=== PATIENT | male | born 1965 | race African-American/Black ===

== ENCOUNTER → 2017-03-17 | Outpatient (CLI) | payer OTHER ==
[~2017-03-17] MED LIST: ASPI-892 PO; LISI1TAB78 PO
== END ==
LOC: PREOP 05:42
PROVIDERS: ATTEND Surgery
DX: Z01.818 Encounter for other preprocedural examination (principal); K62.5 Hemorrhage of anus and rectum

== ENCOUNTER 2017-03-24 13:10 | Day surgery (SDC) | payer OTHER ==
[~2017-03-24] VITALS: Ht 170.2 cm; Wt 81.2 kg
--- OUTSIDE RECORDS SUMMARY | 2017-03-24 13:14 | XMS REPORT | Continuity of Care Document ---
Author Author [facility] Address Unknown Phone Unavailable Allergies Active Description Code Type Severity Reaction Onset Reported/Identified Relationship to Patient Clinical Status Yes No Known Drug Allergies [id number] Drug Allergy Unknown N/ A 07/18/2014 Medications Problems Date Dx Coded Attending Type Code Diagnosis Diagnosed By 09/15/2012 927.20 CRUSHING INJURY OF HAND(S) 09/15/2012 927.20 CRUSHING INJURY OF HAND(S) 09/15/2012 DARNELL MCINTYRE APRN 927.20 CRUSHING INJURY OF HAND(S) 09/15/2012 DARNELL MCINTYRE APRN 927.20 CRUSHING INJURY OF HAND(S) 09/15/2012 DARNELL MCINTYRE APRN 927.20 CRUSHING INJURY OF HAND(S) 09/15/2012 SASHA RAND MD 927.20 CRUSHING INJURY OF HAND(S) 01/12/2013 401.1 BENIGN ESSENTIAL HYPERTENSION 01/12/2013 DARNELL MCINTYRE APRN R 401.1 BENIGN ESSENTIAL HYPERTENSION 01/12/2013 DARNELL MCINTYRE APRN R 401.1 BENIGN ESSENTIAL HYPERTENSION 01/12/2013 DARNELL MCINTYRE APRN R 401.1 BENIGN ESSENTIAL HYPERTENSION 01/12/2013 SASHA RAND MD 401.1 BENIGN ESSENTIAL HYPERTENSION 08/24/2013 DARNELL MCINTYRE APRN R V70.0 ROUTINE GENERAL MEDICAL EXAMINATION AT A HEALTH CARE FACILITY 08/24/2013 DARNELL MCINTYRE APRN V70.0 ROUTINE GENERAL MEDICAL EXAMINATION AT A HEALTH CARE FACILITY 08/24/2013 DARNELL MCINTYRE APRN V70.0 ROUTINE GENERAL MEDICAL EXAMINATION AT A HEALTH CARE FACILITY 08/24/2013 SASHA RAND MD V70.0 ROUTINE GENERAL MEDICAL EXAMINATION AT A HEALTH CARE FACILITY 04/11/2014 DARNELL MCINTYRE APRN 786.50 CHEST PAIN 04/11/2014 DARNELL MCINTYRE APRN 786.50 CHEST PAIN 04/11/2014 SASHA RAND MD 786.50 CHEST PAIN 07/12/2014 KEYONA DUKE, SASHA 424.0 MITRAL VALVE DISORDERS 07/12/2014 KEYONA DUKE, SASHA 785.1 PALPITATIONS 07/14/2014 Ot 424.0 07/14/2014 Ot 785.1 07/14/2014 Ot 786.50 07/17/2014 Ot 424.0 07/17/2014 Ot 785.1 07/17/2014 Ot 786.50 07/17/2014 Ot 424.0 07/17/2014 Ot 785.1 07/17/2014 Ot 786.50 07/17/2014 Ot 424.0 07/17/2014 Ot 785.1 07/17/2014 Ot 786.50 07/18/2014 Ot 424.0 07/18/2014 Ot 785.1 07/18/2014 Ot 786.50 07/18/2014 Ot 305.1 07/18/2014 Ot 401.9 07/18/2014 Ot 785.1 07/18/2014 Ot 786.09 07/18/2014 Ot 786.59 07/18/2014 Ot V58.69 07/18/2014 Ot V58.49 07/18/2014 Ot V58.49 07/19/2014 Ot 424.0 07/19/2014 Ot 785.1 07/19/2014 Ot 786.50 07/19/2014 Ot 424.0 07/19/2014 Ot 785.1 07/19/2014 Ot 786.50 07/19/2014 Ot 424.0 07/19/2014 Ot 785.1 07/19/2014 Ot 786.50 07/19/2014 Ot 424.0 07/19/2014 Ot 785.1 07/19/2014 Ot 786.50 07/19/2014 Ot 424.0 07/19/2014 Ot 785.1 07/19/2014 Ot 786.50 07/19/2014 Ot 424.0 07/19/2014 Ot 785.1 07/19/2014 Ot 786.50 07/20/2014 Ot 401.9 07/20/2014 Ot 998.11 07/26/2014 KEYONA DUKE, SASHA 729.5 PAIN IN LIMB 08/15/2014 Ot 424.0 08/15/2014 Ot 785.1 08/15/2014 Ot 786.50 08/15/2014 KEYONA DUKE FACC, SASHA FACP CCDS Ot 424.0 08/15/2014 KEYONA DUKE FACC, ALI FACP CCDS Ot 785.1 08/15/2014 KEYONA DUKE FACC, ALI FACP CCDS Ot 786.50 08/15/2014 Ot 424.0 08/15/2014 Ot 785.1 08/15/2014 Ot 786.50 08/15/2014 Ot 789.09 08/15/2014 Ot V45.89 08/15/2014 KEYONA DUKE FACC, ALI FACP CCDS Ot 424.0 08/15/2014 KEYONA DUKE FACC, ALI FACP CCDS Ot 785.1 08/15/2014 KEYONA DUKE FACC, ALI FACP CCDS Ot 786.50 08/15/2014 KEYONA DUKE FACC, ALI FACP CCDS Ot 424.0 08/15/2014 KEYONA DUKE FACC, ALI FACP CCDS Ot 785.1 08/15/2014 KEYONA DUKE FACC, ALI FACP CCDS Ot 786.50 08/15/2014 Ot 424.0 08/15/2014 Ot 785.1 08/15/2014 Ot 786.50 08/22/2014 Ot 424.0 08/22/2014 Ot 785.1 08/22/2014 Ot 786.50 08/22/2014 Ot 789.09 08/22/2014 Ot V45.89 10/05/2014 KEYONA DUKE FACC, ALI FACP CCDS Ot 305.1 10/05/2014 KEYONA HERNANDEZC, ALI FACP CCDS Ot 715.35 10/05/2014 KEYONA HERNANDEZC, ALI FACP CCDS Ot 789.09 10/18/2014 KEYONA DUKE FACC, ALI FACP CCDS Ot 305.1 10/18/2014 KEYONA DUKE FACC, ALI FACP CCDS Ot 715.35 10/18/2014 KEYONA DUKE FACC, ALI FACP CCDS Ot 789.09 10/19/2014 KEYONA DUKE FACC, ALI FACP CCDS Ot 424.0 10/19/2014 KEYONA DUKE FACC, ALI FACP CCDS Ot 785.1 10/19/2014 KEYONA DUKE FACC, ALI FACP CCDS Ot 786.50 Procedures Code Description [place] [address] XRAY HAND LEFT 2 VIEWS 09/16/2012 41310 XRAY CHEST 2 VIEW 04/11/2014 48855 EKG, TRACING 89334 ROUTINE VENIPUNCTURE 05/22/2014 CARDIOLOG SASHA RAND 05/22/2014 36277 CBC 05/22/2014 9315907 GFR CALC (RESULT ONLY) 05/22/2014 53020 CMP 05/22/2014 95173 LIPID PANEL 05/22 49813 MAGNESIUM 2013 07937 TSH 05/22/2014 56514 ECHO 2D 2014 17265 US SOFT TISSUE (SPECIFY LOCATION) 07/26/2014 76651 EVENT MONITOR 08/2014 73017 LEFT HEART CATH 07/26/2014 53062 KING 07/26/2014 42773 OXIMETRY 2014 Results Encounters ACCT No. Visit Date/Time Discharge Status Pt. Type Provider Facility Loc./Unit Complaint [id number] 07/26/2014 09:50:00 07/26/2014 23: 59:59 CLS Outpatient SASHA RAND MD [id number] 05/22/2014 10:34:00 05/22/2014 23: 59:59 CLS Outpatient DARNELL MCINTYRE APRN [id number] 04/11/2014 16:24:00 04/11/2014 23: 59:59 CLS Outpatient DARNELL MCINTYRE APRN [id number] 08/24/2013 09:21:00 08/24/2013 23: 59:59 CLS Outpatient DARNELL MCINTYRE APRN [id number] 01/12/2013 15:51:00 Document Registration [id number] 09/15/2012 17:13:00 Document Registration [id number] 03/17/2017 05:42:00 2016 23:59:59 CLS Outpatient CAYDEN CHAU DO [facility] PREOP COLO [id number] 10/20/2014 09:30:00 2014 23:59:59 CLS Preadmit SASHA RAND MD, FACC, FACP CCDS [facility] CARD [id number] 08/14/2014 06:38:00 2014 00:01:00 DIS Outpatient SASHA RAND MD, FACC, FACP CCDS [facility] CARD [id number] 08/22/2014 12:15:00 2014 23:59:59 CLS Outpatient KEYONA DUKE FACC, SASHA DOYLE CCDS [facility] RAD [id number] 03/24/2017 10:15:00 PEN Preadmit CAYDEN CHAU DO [facility] ENDO RECTAL BLEEDING [id number] 07/26/2014 11:58:00 Document Registration [id number] 07/19/2014 05:40:00 Document Registration [id number] 07/18/2014 17:00:00 Document Registration [id number] 07/18/2014 07:24:00 Document Registration [id number] 07/14/2014 13:58:00 Document Registration [id number] 07/13/2014 15:06:00 Document Registration
[2017-03-24] MEDS ORDERED: NS IV 1000 ML 1,000 ML IV STA (13:17)
[2017-03-24 13:20] VITALS: BP 121/79
[2017-03-24] MEDS ORDERED: MIDAZOLAM 5 MG/5 ML (VERSED) VIAL ONE (13:20)
[2017-03-24] MEDS ORDERED: proPOfol 200 MG/20 ML (DIPRIVAN) VIAL IV ONE (13:20)
--- NOTE | 2017-03-24 13:38 | Progress Note-Pre Operative ---
Pre-Operative Progress Note H&P Reviewed The H&P was reviewed, patient examined and no changes noted. Date Seen by Provider: Mar 24, 2017 Time Seen by Provider: 13:37 Date H&P Reviewed: Mar 24, 2017 Time H&P Reviewed: 13:38 Pre-Operative Diagnosis: rectal bleeding CAYDEN CHAU DO Mar 24, 2017 13:38
--- NOTE | 2017-03-24 14:08 | Progress Note-Post Operative ---
Post-Operative Progess Note Surgeon (s)/Home Care Giver (s) Surgeon CAYDEN CHAU DO Home Care Giver: na Pre-Operative Diagnosis rectal bleeding Post-Operative Diagnosis post anal fissure, descending colon polyp, diverticulosis Procedure & Operative Findings Date of Procedure 03/24/17 Procedure Performed/Findings colonoscopy with hot bx polypectomy Anesthesia Type per data transcriber Estimated Blood Loss Estimated blood loss (mL): none Specimens/Packing Specimens Removed colon polyp CYADEN CHAU DO Mar 24, 2017 14:08
[2017-03-24] MEDS ORDERED: DOCU-143 PO (14:11)
--- NOTE | 2017-03-24 14:12 | Discharge Inst-Simple/Standard ---
Discharge Inst-Standard Discharge Medications New, Converted or Re-Newed RX: RX on Chart Patient Instructions/Follow Up Plan of Care/Instructions/FU: 2 weeks Sd Activity as Tolerated: Yes Discharge Diet: Regular Diet (high fiber) CAYDEN CHAU DO Mar 24, 2017 14:12
[2017-03-24 14:30] VITALS: BP 116/73
[2017-03-24 14:55] VITALS: BP 112/75
[2017-03-24 15:15] VITALS: BP 112/75
--- NOTE | 2017-03-25 01:07 | OPERATIVE REPORT ---
DATE OF SERVICE: 03/24/2017 PREOPERATIVE DIAGNOSIS: Rectal bleeding. POSTOPERATIVE DIAGNOSES: Posterior anal fissure, descending colon polyp, and diverticulosis. PROCEDURE: Colonoscopy with hot biopsy polypectomy. SURGEON: Cayden Beaver DO. ANESTHESIA: Per SLICING MACHINE FEEDER. ESTIMATED BLOOD LOSS: None. COMPLICATIONS: None. INDICATIONS: The patient is a 51-year-old male who has been having some rectal bleeding. He understands risks and benefits of procedure and wished to proceed with procedure. Consent was signed in the chart. DESCRIPTION OF PROCEDURE: The patient was taken to the endoscopy suite, placed in left lateral recumbent position. Timeout was performed. Digital rectal exam was performed. There was noted to be a small posterior anal fissure. There were no polyps, masses, or ulcerations present. Scope was inserted in the rectum and advanced all the way to the cecum with minimal difficulty. Prep was adequate. Scope was then slowly retracted back. There were no polyps, mass, or ulcerations within the cecum, ascending, or transverse colon. Within the descending colon, a small polyp was present, which hot biopsy polypectomy was performed. Scope was continued slowly retracted back also noting some diverticulosis through the descending and sigmoid colon. Once in the rectum, scope was also retroflexed noting no other pathology. Scope was returned to its normal position, slowly withdrawn until completely removed. The patient tolerated procedure well without any complications and taken to recovery room in stable condition. RECOMMENDATIONS: The patient will be placed on some stool softener, Colace 100 mg twice a day for approximately 2 weeks to keep the stool nice and soft and also high-fiber diet. The patient will follow up in 2 weeks for reevaluation of fissure and also to discuss pathology results of the biopsy of the polyp. The patient will need repeat colonoscopy in 5 years. If he has any problems prior to that, he should be reevaluated at that time. Job ID: [id number] DocumentID: [id number] Dictated Date: 03/24/2017 14:15:02 Exchange Consultant Date: 03/25/2017 01:07:19 Dictated By: CAYDEN BEAVER DO
== END 2017-03-24 15:15 | disposition home or self-care (01) ==
LOC: ENDO 13:10
PROVIDERS: ATTEND Surgery
DX: K60.2 Anal fissure, unspecified (principal); K63.5 Polyp of colon; K57.30 Diverticulosis of large intestine without perforation or abscess without bleeding; F17.210 Nicotine dependence, cigarettes, uncomplicated; I10 Essential (primary) hypertension; I34.1 Nonrheumatic mitral (valve) prolapse; Z79.82 Long term (current) use of aspirin; Z79.899 Other long term (current) drug therapy

== ENCOUNTER → 2020-11-07 | Outpatient (CLI) | payer SELFPAY ==
[~2020-11-07] MED LIST changes: +ATOR40TA70 PO; +DOCU-143 PO; +LISI1TAB46 PO
== END ==
LOC: LABNPT 06:26
PROVIDERS: ATTEND Orthopaedic Surgery
DX: Z01.812 Encounter for preprocedural laboratory examination (principal); Z20.822 Contact with and (suspected) exposure to COVID-19
CPT/HCPCS: 87635

== ENCOUNTER 2020-11-09 12:51 | Inpatient (IN) | payer OTHER ==
[~2020-11-09] VITALS: Ht 170.2 cm; Wt 95.0 kg
[~2020-11-09 12:51] MED LIST changes: -ATOR40TA70 PO; -LISI1TAB46 PO
--- NOTE | 2020-11-09 13:12 | ED Cough/URI ---
General Chief Complaint: Respiratory Problems Stated Complaint: SOB/ POST OPP 5 HOURS Source: patient Exam Limitations: no limitations History of Present Illness Date Seen by Provider: Nov 09, 2020 Time Seen by Provider: 13:10 Initial Comments To ER with reports of shortness of breath and feeling as though his airway is swelling. This began after having right shoulder surgery at [facility] this [facility]. He was released from there at about 10 AM. He has had a cough and some shortness of breath. Timing/Duration: just prior to arrival, getting worse Associated Symptoms: cough, shortness of breath Allergies and Home Medications Allergies Coded Allergies: No Known Drug Allergies (Unverified , 07/18/14) Home Medications Aspirin 81 Mg Tabec, 81 MG PO DAILY, (Reported) Docusate Sodium 100 Mg Capsule, 100 MG PO BID Prescribed by: CAYDEN CHAU on 03/24/17 1411 Lisinopril/Hydrochlorothiazide 1 Tab Tablet, 1 TAB PO DAILY, (Reported) Patient Home Medication List Home Medication List Reviewed: Yes Review of Systems Review of Systems Constitutional: see HPI EENTM: see HPI Respiratory: see HPI, cough Cardiovascular: no symptoms reported Genitourinary: no symptoms reported Musculoskeletal: no symptoms reported Skin: no symptoms reported Psychiatric/Neurological: No Symptoms Reported Hematologic/Lymphatic: No Symptoms Reported Past Qeijsaf-Hlqsoj-Nrwqvg Hx Patient Social History Alcohol Beverage of Choice: Beer Type Used: Cigarettes Recent Hopitalizations: No Immunizations Up To Date Tetanus Booster (TDap): Unknown PED Vaccines UTD: No Seasonal Allergies Seasonal Allergies: No Past Medical History Orthopedic Hypertension, Palpitations Reproductive Disorders: No Adverse Reaction/Blood Tranf: No Physical Exam Vital Signs - First Documented 11/09/20 13:00 Temp 36.9 Pulse 127 Resp 32 B/P (MAP) 137/104 (115) Pulse Ox 91 O2 Delivery Room Air Capillary Refill : Height: 5'7.00" Weight: 179lbs. 0.0oz. 81.970345wy; 28.0 BMI Method: General Appearance: WD/WN, no apparent distress Eyes: Bilateral Eye Normal Inspection, Bilateral Eye PERRL, Bilateral Eye EOMI Neck: non-tender, full range of motion Respiratory: no respiratory distress, no accessory muscle use, other (He has a lot of subcutaneous emphysema posterior right chest wall) Cardiovascular: no murmur, tachycardia Gastrointestinal: normal bowel sounds, non tender, soft Neurologic/Psychiatric: alert, normal mood/affect, oriented x 3 Skin: normal color, warm/dry Procedures/Interventions Chest Tube : Chest Tube Position: Right Chest Tube Location: Mid-Clavicular Chest Chest Tube Procedure: betadine prep, sterile drapes applied Anesthesia: 1% Lidocaine w/ Epi Volume Anesthetic (ccs): 5 Forman of Air [place]: Yes Number of Attempts: 1 Time of Successful Intubation: 15:10 Post Procedure CXR?: Yes Progress Thoravent chest tube placed by me right mid clavicular line pt tolerated well. Progress/Results/Core Measures Suspected Sepsis SIRS Temperature: Pulse: Respiratory Rate: Laboratory Tests 11/09/20 13:15: White Blood Count 7.4 Blood Pressure / Mean: Laboratory Tests 11/09/20 13:15: Creatinine 0.91, Platelet Count 262, Total Bilirubin 0.8 Results/Orders Lab Results Laboratory Tests Test 11/09/20 13:15 Range/Units White Blood Count 7.4 4.3-11.0 10^3/uL Red Blood Count 4.10 L 4.30-5.52 10^6/uL Hemoglobin 12.8 L 13.3-17.7 g/dL Hematocrit 38 L 40-54 % Mean Corpuscular Volume 92 80-99 fL Mean Corpuscular Hemoglobin 31 25-34 pg Mean Corpuscular Hemoglobin Concent 34 32-36 g/dL Red Cell Distribution Width 13.0 10.0-14.5 % Platelet Count 262 130-400 10^3/uL Mean Platelet Volume 10.4 9.0-12.2 fL Immature Granulocyte % (Auto) 0 % Neutrophils (%) (Auto) 89 H 42-75 % Lymphocytes (%) (Auto) 9 L 12-44 % Monocytes (%) (Auto) 1 0-12 % Eosinophils (%) (Auto) 0 0-10 % Basophils (%) (Auto) 0 0-10 % Neutrophils # (Auto) 6.6 1.8-7.8 10^3/uL Lymphocytes # (Auto) 0.7 L 1.0-4.0 10^3/uL Monocytes # (Auto) 0.1 0.0-1.0 10^3/uL Eosinophils # (Auto) 0.0 0.0-0.3 10^3/uL Basophils # (Auto) 0.0 0.0-0.1 10^3/uL Immature Granulocyte # (Auto) 0.0 0.0-0.1 10^3/uL Neutrophils % (Manual) 86 % Lymphocytes % (Manual) 11 % Monocytes % (Manual) 3 % Blood Morphology Comment NORMAL Sodium Level 136 135-145 MMOL/L Potassium Level 4.1 3.6-5.0 MMOL/L Chloride Level 104 98-107 MMOL/L Carbon Dioxide Level 23 21-32 MMOL/L Anion Gap 9 5-14 MMOL/L Blood Urea Nitrogen 14 7-18 MG/DL Creatinine 0.91 0.60-1.30 MG/DL Estimat Glomerular Filtration Rate > 60 BUN/Creatinine Ratio 15 Glucose Level 140 H 70-105 MG/DL Calcium Level 9.0 8.5-10.1 MG/DL Corrected Calcium 8.7 8.5-10.1 MG/DL Total Bilirubin 0.8 0.1-1.0 MG/DL Aspartate Amino Transf (AST/SGOT) 19 5-34 U/L Alanine Aminotransferase (ALT/SGPT) 17 0-55 U/L Alkaline Phosphatase 41 40-136 U/L B-Type Natriuretic Peptide 20.1 <100.0 PG/ML Total Protein 7.6 6.4-8.2 GM/DL Albumin 4.4 3.2-4.5 GM/DL My Orders Orders - MANISH LAUREN APRN Cbc With Automated Diff (11/09/20 13:09) Comprehensive Metabolic Panel (11/09/20 13:09) Ed Iv/Invasive Line Start (11/09/20 13:09) BNP (11/09/20 13:09) Diphenhydramine Injection (Benadryl Inje (11/09/20 13:15) Chest 1 View, Ap/Pa Only (11/09/20 13:09) Manual Differential (11/09/20 13:15) Ct Chest Wo (11/09/20 14:01) Lidocaine/Epi 1% 1:100,000 (Lidocaine 1% (11/09/20 14:45) Fentanyl Inj (Sublimaze Injection) (11/09/20 14:45) Lidocaine/Epi 1% 1:100,000 (Xylocaine /E (11/09/20 15:00) Lidocaine/Epi 1% 1:100,000 (Xylocaine /E (11/09/20 15:00) Chest 1 View, Ap/Pa Only (11/09/20 15:11) Medications Given in ED Current Medications Medications Dose Ordered Sig/Sneha Route Start Time Stop Time Status Last Admin Dose Admin Diphenhydramine HCl 25 mg ONCE ONCE IVP 11/09/20 13:15 11/09/20 13:16 DC 11/09/20 13:17 25 MG Fentanyl Citrate 75 mcg ONCE ONCE IVP 11/09/20 14:45 11/09/20 14:46 DC 11/09/20 14:57 75 MCG Lidocaine/ Epinephrine 20 ml ONCE ONCE INJ 11/09/20 15:00 11/09/20 15:01 DC 11/09/20 14:57 20 ML Vital Signs/I&O 11/09/20 13:00 Temp 36.9 Pulse 127 Resp 32 B/P (MAP) 137/104 (115) Pulse Ox 91 O2 Delivery Room Air Capillary Refill : Diagnostic Imaging Diagonstic Imaging: Xray Plain Films/CT/US/NM/MRI: chest Comments NAME: [facility] REC#: [id number] PT STATUS: REG ER : 1965 PHYSICIAN: MANISH LAUREN APRN ADMIT DATE: 11/09/20/ER Draft Date of Exam:11/09/20 CHEST 1 VIEW, AP/PA ONLY INDICATION: Cough and shortness of breath. Postop 5 hours ago. No previous for comparison. FINDINGS: There is atelectasis in the right lung base. There is elevation right hemidiaphragm. There is question of small right apical pneumothorax. There is also subcutaneous air along the neck and right lateral chest. The left lung is well-aerated and clear. Heart is not enlarged. No pulmonary edema. There is no definite pneumothorax, however. IMPRESSION: 1. Right basilar atelectasis with probable small apical pneumothorax. There is also subcutaneous air along the right neck and lateral chest. Dictated on workstation # [id number] Dict: 11/09/20 1333 Trans: 11/09/20 1345 [id number] Interpreted by: MARIA LUZ SALAZAR MD Electronically signed by: Departure Communication (Admissions) I spoke with dr botello from surgery, agrees with placing chest tube and admit, spoke with dr negro agrees with admit. NAME: J[facility] JON[facility] REC#: [id number] PT STATUS: REG ER : 1965 PHYSICIAN: MANISH LAUREN APRN ADMIT DATE: 11/09/20/ER Draft Date of Exam:11/09/20 CHEST 1 VIEW, AP/PA ONLY INDICATION: Pneumothorax Portable chest 3:22 PM There is a pigtail thoracostomy tube projecting over the right lower lateral chest. There is no appreciable pneumothorax. There is some right basilar atelectasis. IMPRESSION: Apparent evacuation of right pneumothorax following thoracostomy tube placement. Dictated on workstation # [id number] Dict: 11/09/20 1524 Trans: 11/09/20 1528 [facility] [phone] Interpreted by: ZAINA SEGURA MD Electronically signed by: Impression Primary Impression: Pneumothorax on right Disposition: ADMITTED INPATIENT Condition: Stable Admissions Decision to Admit Reason: Admit from ER (General) Decision to Admit/Date: Nov 09, 2020 Time/Decision to Admit Time: 14:00 Departure-Patient Inst. Referrals: [facility] (PCP/Family) Primary Care Physician MANISH LAUREN APRN Nov 09, 2020 13:12
[2020-11-09] MEDS ORDERED: diphenhydrAMINE 50 MG/ML INJ (BENADRYL) IVP ONE (13:15)
[2020-11-09 13:23] LABS: BASOPHILS % (AUTO) 0 % (0-10); EOSINOPHILS % (AUTO) 0 % (0-10); HEMATOCRIT 38 % (40-54); HEMOGLOBIN 12.8 g/dL (13.3-17.7); LYMPHOCYTES # (AUTO) 0.7 10^3/uL (1.0-4.0); LYMPHOCYTES % (AUTO) 9 % (12-44); MEAN CORPUSCULAR HEMOGLOBIN 31 pg (25-34); MEAN CORPUSCULAR HGB CONC 34 g/dL (32-36); MEAN CORPUSCULAR VOLUME 92 fL (80-99); MEAN PLATELET VOLUME 10.4 fL (9.0-12.2); MONOCYTES # (AUTO) 0.1 10^3/uL (0.0-1.0); MONOCYTES % (AUTO) 1 % (0-12); NEUTROPHILS # (AUTO) 6.6 10^3/uL (1.8-7.8); NEUTROPHILS % (AUTO) 89 % (42-75); PLATELET COUNT 262 10^3/uL (130-400); WHITE BLOOD COUNT 7.4 10^3/uL (4.3-11.0)
[2020-11-09 13:33] LABS: LYMPHOCYTES % (MANUAL) 11 %; MONOCYTES % (MANUAL) 3 %; NEUTROPHILS % (MANUAL) 86 %
[2020-11-09 13:34] LABS: ALBUMIN 4.4 GM/DL (3.2-4.5); CHLORIDE 104 MMOL/L (98-107); POTASSIUM 4.1 MMOL/L (3.6-5.0); RBC MORPH NORMAL; SODIUM 136 MMOL/L (135-145)
[2020-11-09 13:37] LABS: GLUCOSE 140 MG/DL (70-105); TOTAL PROTEIN 7.6 GM/DL (6.4-8.2)
[2020-11-09 13:38] LABS: CARBON DIOXIDE 23 MMOL/L (21-32)
[2020-11-09 13:39] LABS: BILIRUBIN,TOTAL 0.8 MG/DL (0.1-1.0)
[2020-11-09 13:40] LABS: ALKALINE PHOSPHATASE 41 U/L (40-136); CREATININE SERUM 0.91 MG/DL (0.60-1.30); GFR ESTIMATED > 60
[2020-11-09 13:41] LABS: BUN/CREATININE RATIO 15
[2020-11-09 13:43] LABS: ALANINE AMINOTRANSFERASE 17 U/L (0-55)
--- NOTE | 2020-11-09 13:45 | Diagnostic Imaging Report ---
INDICATION: Cough and shortness of breath. Postop 5 hours ago. No previous for comparison. FINDINGS: There is atelectasis in the right lung base. There is elevation right hemidiaphragm. There is question of small right apical pneumothorax. There is also subcutaneous air along the neck and right lateral chest. The left lung is well-aerated and clear. Heart is not enlarged. No pulmonary edema. There is no definite pneumothorax, however. IMPRESSION: 1. Right basilar atelectasis with probable small apical pneumothorax. There is also subcutaneous air along the right neck and lateral chest. Dictated by: Dictated on workstation # [id number]
[2020-11-09] MEDS ORDERED: fentaNYL INJ 100 MCG/2 ML AMP IVP ONE (14:45)
[2020-11-09] MEDS ORDERED: LIDOCAINE/EPI 1%-1:100,000 (XYLOCAINE) 50 ML INJ ONE (14:45)
--- NOTE | 2020-11-09 14:54 | Diagnostic Imaging Report ---
PROCEDURE: CT chest without contrast. TECHNIQUE: Multiple contiguous axial images were obtained through the chest without the use of intravenous contrast. Auto Exposure Controls were utilized during the CT exam to meet ALARA standards for radiation dose reduction. INDICATION: Shortness of air, pneumothorax, rotator cuff surgery 5 hours ago COMPARISON: Chest x-ray from 11/09/2020 FINDINGS: The heart is normal in size. There is moderate to marked air throughout the mediastinum. The aorta appears normal in caliber. No mediastinal adenopathy is seen. There is a moderate right pneumothorax with dependent atelectasis in the right lung. The left lung is clear. No acute fracture is identified. There is marked air along the right chest wall. Imaged portions of the upper abdomen demonstrate no acute abnormality. IMPRESSION: 1. Moderate right pneumothorax with dependent atelectasis. 2. Moderate to marked pneumomediastinum with air along the right chest wall and neck. Findings discussed with MANISH LAUREN by Dr. Ramos, on 11/09/2020 2:51 PM. Dictated by: Dictated on workstation # [id number]
[2020-11-09] MEDS ORDERED: LIDOCAINE/EPI 1%-1:100,000 (XYLOCAINE) 20ML INJ ONE ×2 (15:00)
--- NOTE | 2020-11-09 15:28 | Diagnostic Imaging Report ---
INDICATION: Pneumothorax Portable chest 3:22 PM There is a pigtail thoracostomy tube projecting over the right lower lateral chest. There is no appreciable pneumothorax. There is some right basilar atelectasis. IMPRESSION: Apparent evacuation of right pneumothorax following thoracostomy tube placement. Dictated by: Dictated on workstation # [id number]
[2020-11-09] MEDS ORDERED: CATHETER FLUSH 10 ML SYR IV PRN (16:30)
[2020-11-09 16:37] VITALS: BP 137/104
--- NOTE | 2020-11-09 16:38 | Tele-ICU Progress Note ---
Progress Note Available chart/ vitals / labs / Images reviewed H&P is from ER notes Patient's information available about PMH, Shx, Fhx allergy reviewed in EMR. Patient admitted 11/09 - presented with SOB - > RIGHT secondary PTX -> s/p chest tube placement Now in ICU, hemodynamically stable Video assessment done using teleICU camera, rest of exam as per RN Discussed with RN. Consultants: Sx A/P RIGHT secondary PTX , pneumomediastinum with air along the right chest wall and neck. (following right shoulder surgery this am ) - s/p chest tube with resolution PTX - Thora vent in place - pain control Lines : Franco: VTE Prophylaxis: scd if not ambulating Stress Ulcer Prophylaxis: na NO TELE-ICU CONSULT REQUESTED continue to monitor as per usual tele-ICU protocol No need for Tele-ICU interventions Plans as delineated by bedside physicians / consultants Focused Exam Height, Weight, BMI Height: 5'7.00" Weight: 179lbs. 0.0oz. 81.397467ag; 31.69 BMI Method: RASTA MARTÍNEZ MD Nov 09, 2020 16:38
[2020-11-09] MEDS: fentaNYL INJ 100 MCG/2 ML AMP IVP PRN ×3 (16:54→23:01)
[2020-11-09] MEDS ORDERED: LISI1TAB46 PO (18:50)
[2020-11-09] MEDS ORDERED: ATOR40TA70 PO (18:50)
[2020-11-09] MEDS ORDERED: NEO/POLY/BAC (NEOSPORIN) OINT 15 GM TUBE TOP PRN (19:00)
[2020-11-09] MEDS ORDERED: RT-ALBUTEROL SULF 2.5 MG/3 ML PRE-MIX VIAL INH SCH (21:00)
--- NOTE | 2020-11-09 21:32 | CONSULTATION REPORT ---
DATE OF SERVICE: ATTENDING DRAPERY SUPERVISOR: [facility]. ADMITTING PHYSICIAN: Dr. Yarbrough. HISTORY OF PRESENT ILLNESS: The patient is a 55-year-old male who underwent a right shoulder orthopedic surgery at [facility] earlier this morning. He was discharged home at around 10:00 a.m. and once he got home, he developed shortness of breath as well as a cough. He presented to the Emergency Department where a chest x-ray was performed, which did show subcutaneous air along the right chest as well as the neck as well as a very small apical pneumothorax, likely indicating a breach in the pleura. Emergency room staff did place a Thora-Vent and a followup chest x-ray did show improvement. He states that his pain is under control and he is not short of breath, on oxygen nasal cannula. PAST MEDICAL HISTORY: Hypertension, cardiac arrhythmia and degenerative joint disease. PAST SURGICAL HISTORY: Right shoulder open reduction and internal fixation today. ALLERGIES: No known drug allergies. MEDICATIONS: Aspirin 81 mg daily, Colace 100 mg b.i.d., lisinopril/hydrochlorothiazide daily. SOCIAL HISTORY: Positive smoke 30 pack years. Does drink beer daily. FAMILY HISTORY: Noncontributory. VITAL SIGNS: Temperature 36.9, pulse 95, respirations 18, pulse ox 97% on 2 liters nasal cannula, blood pressure 125/82. REVIEW OF SYSTEMS: This is a well-nourished male currently in no acute distress. He is having some mild exertional shortness of breath; however, not at rest. He is having intermittent cough, no sputum production. No hemoptysis. No chest pain, palpitations, diaphoresis. No nausea, vomiting, no diarrhea or constipation. No fever, chills, no recent inadvertent weight loss. All other review of systems negative. PHYSICAL EXAMINATION: CHEST: Decreased breath sounds right lung base with some mild crepitance along the left chest as well as neck. The Thora-Vent is in place and functional. HEART: Regular, no murmurs. EXTREMITIES: No lower extremity edema, negative Homans sign. HEENT: No scleral icterus. NECK: No cervical lymphadenopathy. ABDOMEN: Soft, nontender, nondistended. SKIN: Warm, dry. LABORATORY DATA: WBC 7.4, hemoglobin 12.8, hematocrit 38, platelets 262. BUN 14, creatinine 0.91. 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 He has a Thora-Vent in place and we will continue to allow for evacuation of both the pneumothorax as well as the subcutaneous emphysema. We will continue with serial chest x-rays and adequate pain control. We will also proceed with breathing treatments and incentive spirometry. Job ID: [id number] DocumentID: [id number] Dictated Date: 11/09/2020 21:17:30 Pulmonologist Date: 11/09/2020 21:31:16 Dictated By: MARLEE LANGSTON MD
[2020-11-09] MEDS: CATHETER FLUSH 10 ML SYR IV SCH (22:24)
[2020-11-09] MEDS: RT-ALBUTEROL SULF 2.5 MG/3 ML PRE-MIX VIAL INH SCH (23:20)
[2020-11-10] MEDS: RT-ALBUTEROL SULF 2.5 MG/3 ML PRE-MIX VIAL INH SCH ×5 (02:37→20:47)
[2020-11-10] MEDS: fentaNYL INJ 100 MCG/2 ML AMP IVP PRN ×7 (03:05→22:59)
[2020-11-10 03:59] LABS: BASOPHILS % (AUTO) 0 % (0-10); EOSINOPHILS % (AUTO) 0 % (0-10); HEMATOCRIT 38 % (40-54); HEMOGLOBIN 12.3 g/dL (13.3-17.7); LYMPHOCYTES # (AUTO) 1.1 10^3/uL (1.0-4.0); LYMPHOCYTES % (AUTO) 8 % (12-44); MEAN CORPUSCULAR HEMOGLOBIN 31 pg (25-34); MEAN CORPUSCULAR HGB CONC 33 g/dL (32-36); MEAN CORPUSCULAR VOLUME 94 fL (80-99); MEAN PLATELET VOLUME 11.6 fL (9.0-12.2); MONOCYTES # (AUTO) 0.7 10^3/uL (0.0-1.0); MONOCYTES % (AUTO) 5 % (0-12); NEUTROPHILS # (AUTO) 12.6 10^3/uL (1.8-7.8); NEUTROPHILS % (AUTO) 87 % (42-75); PLATELET COUNT 262 10^3/uL (130-400); WHITE BLOOD COUNT 14.5 10^3/uL (4.3-11.0)
[2020-11-10 04:59] LABS: CHLORIDE 101 MMOL/L (98-107); POTASSIUM 3.6 MMOL/L (3.6-5.0); SODIUM 137 MMOL/L (135-145)
[2020-11-10 05:01] LABS: GLUCOSE 219 MG/DL (70-105)
[2020-11-10 05:02] LABS: CARBON DIOXIDE 20 MMOL/L (21-32)
[2020-11-10 05:04] LABS: CREATININE SERUM 0.99 MG/DL (0.60-1.30); GFR ESTIMATED > 60
[2020-11-10 05:05] LABS: BUN/CREATININE RATIO 14
[2020-11-10] MEDS: CATHETER FLUSH 10 ML SYR IV SCH (06:36)
[2020-11-10] MEDS ORDERED: RT-ALBUTEROL SULF 2.5 MG/3 ML PRE-MIX VIAL INH PRN (06:45)
--- NOTE | 2020-11-10 08:26 | Diagnostic Imaging Report ---
INDICATION: Follow-up pneumothorax. Time of exam: 3:06 AM Correlation is made with prior radiograph one day earlier. Right-sided chest tube has been removed. No significant pneumothorax is seen. There is some atelectasis in the right base. Right hemidiaphragm is elevated. There is subcutaneous gas along the right chest wall as well as the lower right neck soft tissues. There appears to be pneumomediastinum and pneumopericardium as well. Left lung is clear. IMPRESSION: Right chest tube removal without significant pneumothorax. There continues to be a pneumomediastinum as well as subcutaneous emphysema. Dictated by: Dictated on workstation # [id number]
--- NOTE | 2020-11-10 08:41 | History & Physical-Hospitalist ---
History of Present Illness HPI/Chief Complaint Chief complaint: Right-sided pneumothorax with subcutaneous emphysema following right shoulder arthroscopy by Dr. Carrera at [facility] History of present illness: This is a 55-year-old -[place] male who pres ents to the ICU after [facility] assessed a right-sided pneumothorax when he presented with shortness of breath following right shoulder arthroscopy performed by Dr. Carrera at [facility] a few hours prior to arrival. I notified Dr. Carrera of this issue. Pleural vent placed without issue. He has been maintained on oxygen. Dr. Albrecht was consulted. Repeat chest x-ray since pleural vent fell out shows no pneumothorax but still subcutaneous emphysema. Patient will have pain control with pain medication. Source: patient Exam Limitations: no limitations Date Seen 11/10/20 Time Seen by a Provider: 11:30 Attending Physician Judith Yarbrough DO [facility] Referring Physician Date of Admission Nov 09, 2020 at 15:22 Home Medications & Allergies Home Medications Reviewed patient Home Medication Reconciliation performed by pharmacy medication reconciliations wardrobe technician and/or nursing. Patients Allergies have been reviewed. Allergies Allergies Coded Allergies No Known Drug Allergies (Unverified07/18/14) Past Kuxigxs-Mtpcnd-Vzxqud Hx Patient Social History Marrital Status: single Employed/Student: unemployed Tobacco Use?: No Smoking Status: Former Smoker Smokeless type used: Chew Smokeless Tobacco Frequency: Former User Use of E-Cig and/or Vaping dev: No Substance type: Marijuana Alcohol Use?: Yes Alcohol type: Beer Alcohol Frequency: Daily Pt feels they are or have been: No Immunizations Up To Date Tetanus Booster (TDap): More Than 5 Years Hepatitis A: No Hepatitis B: No PED Vaccines UTD: No Seasonal Allergies Seasonal Allergies: No Current Status Advance Directives: No Communicates: Verbally Primary Language: Slovak Preferred Spoken Language: Slovak Is interpretation needed?: No Implanted or Applied Medical D: None Past Medical History Surgeries: Orthopedic Hypertension, Palpitations Blood Disorders: No Adverse Reaction/Blood Tranf: No Review of Systems Constitutional: see HPI Respiratory: dyspnea on exertion Musculoskeletal: joint pain Physical Exam Physical Exam Vital Signs Vital Signs - First Documented 11/09/20 13:00 Temp 36.9 Pulse 127 Resp 32 B/P (MAP) 137/104 (115) Pulse Ox 91 O2 Delivery Room Air Capillary Refill : Less Than 3 Seconds Height, Weight, BMI Height: 5'7.00" Weight: 179lbs. 0.0oz. 81.466634hk; 31.69 BMI Method: General Appearance: No Apparent Distress Eyes: Right Eye Normal Inspection, Right Eye PERRL HEENT: PERRL/EOMI, Normal ENT Inspection, Pharynx Normal, Moist Mucous Membranes Neck: Full Range of Motion, Normal Inspection, Non Tender Respiratory: Chest Non Tender, Lungs Clear, Normal Breath Sounds, No Accessory Muscle Use, No Respiratory Distress Cardiovascular: Regular Rate, Rhythm, No Edema, No Gallop, No JVD, No Murmur, Normal Peripheral Pulses Gastrointestinal: Normal Bowel Sounds, No Organomegaly, No Pulsatile Mass, Non Tender, Soft Back: Normal Inspection, No CVA Tenderness, No Vertebral Tenderness Extremity: Normal Capillary Refill, Normal Inspection, Normal Range of Motion (Right arm in sling), Non Tender, No Calf Tenderness, No Pedal Edema Neurologic/Psychiatric: Alert, Oriented x3, No Motor/Sensory Deficits, Normal Mood/Affect Skin: Normal Color, Warm/Dry Lymphatic: No Adenopathy Results Results/Procedures Labs Laboratory Tests 11/09/20 13:15 11/10/20 03:10 Patient resulted labs reviewed. Assessment/Plan Admission Diagnosis Assessment: Right-sided pneumothorax status post pleural vent now DC but with remaining subcutaneous emphysema Right shoulder arthroscopy by Dr. Carrera at [facility] Former smoker Plan: Pain control Oxygen Appreciate Dr. Albrecht Admission Status: Inpatient Order (span 2 midnights) Reason for Inpatient Admission: Pneumothorax will require 3 days Diagnosis/Problems Diagnosis/Problems (1) Pneumothorax on right Status: Acute (2) Chest wall pain following surgery JUDITH YARBROUGH DO Nov 10, 2020 08:40
[2020-11-10] MEDS ORDERED: KETOROLAC 30 MG/ML VIAL IVP ONE (10:15)
[2020-11-10] MEDS ORDERED: PATIENT MAY USE OWN MEDS, ALL MC SCH (11:00)
--- NOTE | 2020-11-10 11:08 | Tele-ICU Progress Note ---
Subjective Date Seen by a Provider: Nov 10, 2020 Time Seen by a Provider: 09:17 Subjective/Events-last exam Patient appears to be complaining of moderate to severe right-sided chest pain. RN called me that she thinks a chest tube may be out and it could be in the subcutaneous tissue. I have reviewed the chest x-ray and confirmed that chest tube is not within the pleural cavity. Patient does not have any significant p neumothorax however has pneumomediastinum and subcutaneous emphysema. I advised the RN to remove the chest tube and if put a firm dressing on the chest wall. I will order a Toradol for chest pain and advised her to call me if the chest pain is not resolved Sepsis Event Evaluation Height, Weight, BMI Height: 5'7.00" Weight: 179lbs. 0.0oz. 81.092249hw; 31.69 BMI Method: Exam Exam Patient acknowledged, consented, and participated in this virtual visit which was conducted using real time audio/video Vital Signs Date Time Temp Pulse Resp B/P (MAP) Pulse Ox O2 Delivery O2 Flow Rate FiO2 11/10/20 10:00 93 25 137/105 (116) 95 Nasal Cannula 2.00 11/10/20 09:00 70 18 128/82 (97) 95 Nasal Cannula 2.00 11/10/20 08:00 37.4 11/10/20 08:00 71 17 122/74 (90) 94 Nasal Cannula 2.00 11/10/20 07:40 92 Nasal Cannula 2.00 11/10/20 07:00 92 11/10/20 07:00 122 24 129/79 (96) 97 Nasal Cannula 2.00 11/10/20 06:28 94 Nasal Cannula 1.00 11/10/20 06:00 101 23 128/85 (99) 93 Nasal Cannula 2.00 11/10/20 05:00 98 25 120/75 (90) 96 Nasal Cannula 2.00 11/10/20 04:00 Nasal Cannula 2.00 11/10/20 04:00 104 23 115/79 (91) 95 Nasal Cannula 2.00 11/10/20 03:00 116 23 132/74 (93) 95 Nasal Cannula 2.00 11/10/20 02:37 98 Nasal Cannula 1.00 11/10/20 02:00 90 21 115/73 (87) 98 Nasal Cannula 2.00 11/10/20 01:00 106 11/10/20 01:00 106 21 122/77 (92) 96 Nasal Cannula 2.00 11/10/20 00:00 102 26 117/77 (90) 96 Nasal Cannula 2.00 11/09/20 23:59 Nasal Cannula 2.00 11/09/20 23:21 96 Nasal Cannula 2.00 11/09/20 23:00 109 25 136/87 (103) 97 Nasal Cannula 2.00 11/09/20 22:00 114 22 135/80 (98) 96 Nasal Cannula 2.00 11/09/20 21:13 98 Nasal Cannula 2.00 11/09/20 21:00 144 26 98 Nasal Cannula 2.00 11/09/20 20:30 Nasal Cannula 2.00 11/09/20 20:00 122 24 129/79 (96) 97 Nasal Cannula 2.00 11/09/20 20:00 Nasal Cannula 2.00 11/09/20 19:48 37.0 11/09/20 19:00 112 20 163/82 (109) 98 Nasal Cannula 2.00 11/09/20 19:00 116 11/09/20 18:00 122 30 147/83 (104) 97 Nasal Cannula 2.00 11/09/20 17:00 95 18 125/82 (96) 97 Nasal Cannula 2.00 11/09/20 16:37 36.9 127 91 11/09/20 16:21 102 11/09/20 16:04 126 26 136/98 94 Nasal Cannula 2.00 11/09/20 16:00 108 20 123/84 (97) 96 Nasal Cannula 2.00 11/09/20 16:00 Nasal Cannula 2.00 11/09/20 13:00 36.9 127 32 137/104 (115) 91 Room Air I & O 11/10/20 06:59 Intake Total 950 ml Output Total 210 ml Balance 740 ml Height & Weight Height: 5'7.00" Weight: 179lbs. 0.0oz. 81.708290ef; 31.69 BMI Method: General Appearance: Anxious (further physical exam not done by me. exam below by the attending physician) Capillary Refill: Less Than 3 Seconds Gastrointestinal: normal bowel sounds, non tender, soft Results Lab Laboratory Tests 11/09/20 13:15 11/10/20 03:10 Assessment/Plan Assessment/Plan 1. Secondary right-sided pneumothorax status post chest tube insertion. 2. Today chest tube came out accidentally. 3. Chest x-ray saenz pneumothorax resolved however has right subcutaneous emphysema and mediastinal emphysema present. 4. Significant chest pain due to recent surgery. 5. I have personally reviewed his chest x-ray done this a.m. and the report conveyed to the RN. Recommendations 1. We will start on IV Toradol for pain management #2 remove chest tube from the subcutaneous tissue on daily bandage firmly 3. We will repeat chest x-ray at 3 PM 4. I reviewed with PERSONAL FINANCIAL REPRESENTATIVE. Critical Care: Critically Ill Patient Time spent on discussion(mins): 35 Diagnosis/Problems Diagnosis/Problems (1) Chest wall pain following surgery (2) Pneumothorax on right Status: Acute VIKTORIA SAAVEDRA MD Nov 10, 2020 11:08
[2020-11-10] MEDS: HYDROcodone/APAP 7.5 MG/325 MG (LORTAB, LORCET PLUS) TABLET PO PRN ×3 (11:41→20:13)
--- NOTE | 2020-11-10 15:44 | Diagnostic Imaging Report ---
INDICATION: Pneumothorax. TIME OF EXAM: 2:55 p.m. COMPARISON: Correlation is made with prior chest from earlier the same day. FINDINGS: Heart size is stable. Pneumomediastinum and pneumopericardium persists. Extensive subcutaneous emphysema along the right chest wall and right neck persists. There is subsegmental atelectasis in the right lung base. No significant pneumothorax is detected. There is no effusion. IMPRESSION: Overall stable appearance of the chest since exam earlier the same day. Dictated by: Dictated on workstation # [id number]
--- NOTE | 2020-11-10 16:04 | Tele-ICU Progress Note ---
Progress Note This evening's chest x-ray reviewed by me and discussed with the BIOLOGY LECTURER. Chest x-ray did not show pneumothorax but has a pneumomediastinum and right subcutaneous emphysema. Patient apparently doing much better in terms of pain. I advised her to continue oxygen via nasal cannula and pain management. We will repeat a chest x-ray tomorrow a.m. Focused Exam Height, Weight, BMI Height: 5'7.00" Weight: 179lbs. 0.0oz. 81.535980sk; 31.69 BMI Method: VIKTORIA SAAVEDRA MD Nov 10, 2020 16:04
[2020-11-10] MEDS ORDERED: KETOROLAC 15 MG/ML VIAL IVP PRN (16:15)
[2020-11-11] MEDS: HYDROcodone/APAP 7.5 MG/325 MG (LORTAB, LORCET PLUS) TABLET PO PRN ×6 (00:16→21:44)
[2020-11-11] MEDS: fentaNYL INJ 100 MCG/2 ML AMP IVP PRN ×4 (03:41→23:59)
[2020-11-11] MEDS: RT-ALBUTEROL SULF 2.5 MG/3 ML PRE-MIX VIAL INH SCH ×4 (04:46→20:50)
--- NOTE | 2020-11-11 05:50 | Progress Note - Hospitalist ---
Subjective HPI/CC On Admission Date Seen by Provider: Nov 11, 2020 Time Seen by Provider: 11:30 Chief complaint: Right-sided pneumothorax with subcutaneous emphysema following right shoulder arthroscopy by Dr. Carrera at [facility] History of present illness: This is a 55-year-old -Swiss male who presents to the ICU after [facility] ER assessed a right-sided pneumothorax when he presented with shortness of breath following right shoulder arthroscopy performed by Dr. Carrera at [facility] a few hours prior to arrival. I notified Dr. Carrera of this issue. Pleural vent placed without issue. He has been maintained on oxygen. Dr. Albrecht was consulted. Repeat chest x-ray since pleural vent fell out shows no pneumothorax but still subcutaneous emphysema. Patient will have pain control with pain medication. Subjective/Events-last exam Patient constipated so laxatives ordered Chest x-ray reviewed Appreciate Dr. Albrecht Review of Systems General: Fatigue Pulmonary: Dyspnea Objective Exam Vital Signs Vital Signs Date Time Temp Pulse Resp B/P (MAP) Pulse Ox O2 Delivery O2 Flow Rate FiO2 11/12/20 03:51 36.0 99 20 126/81 (96) 94 Room Air 11/11/20 09:00 2.00 Capillary Refill : Less Than 3 Seconds General Appearance: No Apparent Distress, WD/WN, Chronically ill Results/Procedures Lab Patient resulted labs reviewed. Assessment/Plan Assessment and Plan Assess & Plan/Chief Complaint Assessment: Right-sided pneumothorax status post pleural vent now DC but with remaining subcutaneous emphysema Right shoulder arthroscopy by Dr. Carrera at [facility] Former smoker Plan: Pain control Oxygen Appreciate Dr. Albrecht 11/11/2020 Chest x-ray Pain control Oxygen Critical Care Critically Ill Patient Diagnosis/Problems Diagnosis/Problems (1) Pneumothorax on right Status: Acute (2) Chest wall pain following surgery GEMMA LEE DO Nov 11, 2020 05:50
[2020-11-11 07:05] LABS: BASOPHILS % (AUTO) 0 % (0-10); EOSINOPHILS # (AUTO) 0.1 10^3/uL (0.0-0.3); EOSINOPHILS % (AUTO) 1 % (0-10); HEMATOCRIT 35 % (40-54); HEMOGLOBIN 11.4 g/dL (13.3-17.7); LYMPHOCYTES # (AUTO) 2.3 10^3/uL (1.0-4.0); LYMPHOCYTES % (AUTO) 27 % (12-44); MEAN CORPUSCULAR HEMOGLOBIN 31 pg (25-34); MEAN CORPUSCULAR HGB CONC 32 g/dL (32-36); MEAN CORPUSCULAR VOLUME 95 fL (80-99); MEAN PLATELET VOLUME 11.3 fL (9.0-12.2); MONOCYTES # (AUTO) 0.5 10^3/uL (0.0-1.0); MONOCYTES % (AUTO) 6 % (0-12); NEUTROPHILS # (AUTO) 5.6 10^3/uL (1.8-7.8); NEUTROPHILS % (AUTO) 65 % (42-75); PLATELET COUNT 256 10^3/uL (130-400); WHITE BLOOD COUNT 8.5 10^3/uL (4.3-11.0)
[2020-11-11 07:15] LABS: ALBUMIN 3.9 GM/DL (3.2-4.5)
[2020-11-11 07:16] LABS: CHLORIDE 104 MMOL/L (98-107); POTASSIUM 3.7 MMOL/L (3.6-5.0); SODIUM 141 MMOL/L (135-145)
[2020-11-11 07:17] LABS: CALCIUM 8.4 MG/DL (8.5-10.1)
[2020-11-11 07:18] LABS: GLUCOSE 112 MG/DL (70-105); TOTAL PROTEIN 6.9 GM/DL (6.4-8.2)
--- NOTE | 2020-11-11 07:18 | Diagnostic Imaging Report ---
Clinical indications: Followup pneumothorax. Exam: Portable chest x-ray upright view. Comparisons: Chest x-ray dated 11/10/2020. Findings: Subcutaneous air overlying the right neck and right extrathoracic soft tissue region is again seen which appears to have slightly decreased in interim. There is no pneumothorax. There is small amount of pneumopericardium along the left heart and right heart borders regions which has slightly decreased in interim as well. There is mild bibasilar atelectasis with slight volume loss seen. There is slight improved aeration right lung base. There is no pleural effusion. Pulmonary vasculature and cardiac silhouette within normal limits. IMPRESSION: 1: There is a right-sided neck and extrathoracic subcutaneous air which appears to be slightly decreasing. There is no pneumothorax seen. 2: There is pneumopericardium which is decreasing in the interim. 3: There is mild bibasilar atelectasis with slight improved aeration of the right lung base. Dictated by: Dictated on workstation # [id number]
[2020-11-11 07:19] LABS: CARBON DIOXIDE 26 MMOL/L (21-32)
[2020-11-11 07:20] LABS: BILIRUBIN,TOTAL 0.5 MG/DL (0.1-1.0)
[2020-11-11 07:21] LABS: ALKALINE PHOSPHATASE 38 U/L (40-136)
[2020-11-11 07:22] LABS: CREATININE SERUM 0.88 MG/DL (0.60-1.30); GFR ESTIMATED > 60
[2020-11-11 07:23] LABS: BUN/CREATININE RATIO 18
[2020-11-11 07:24] LABS: ALANINE AMINOTRANSFERASE 14 U/L (0-55)
[2020-11-11] MEDS: ASPIRIN E.C. 81 MG (ECOTRIN) TAB PO SCH (08:41)
[2020-11-11] MEDS: [UNRECOGNIZED DRUG - REMARK] PO SCH (08:41)
--- NOTE | 2020-11-11 10:13 | Progress Note ---
Subjective Date Seen by a Provider: Nov 11, 2020 Time Seen by a Provider: 10:00 Subjective/Events-last exam doing better. still has shoulder pain. breathing and crepitance improved. Objective Exam Vital Signs Date Time Temp Pulse Resp B/P (MAP) Pulse Ox O2 Delivery O2 Flow Rate FiO2 11/11/20 08:19 92 Room Air 11/11/20 08:00 36.6 94 20 124/85 (98) 95 Room Air 11/11/20 07:00 89 11/11/20 03:43 36.1 83 18 123/78 (93) 95 Room Air 11/11/20 01:00 80 11/10/20 23:31 36.0 84 22 127/77 (94) 92 Room Air 11/10/20 21:00 92 Nasal Cannula 2.00 11/10/20 20:47 97 Nasal Cannula 1.00 11/10/20 20:00 37.1 11/10/20 19:00 91 11/10/20 16:00 85 19 121/84 (96) 91 Nasal Cannula 2.00 11/10/20 13:50 95 Nasal Cannula 1.00 11/10/20 13:00 78 11/10/20 12:00 64 17 125/84 (98) 95 Nasal Cannula 2.00 11/10/20 11:30 37.1 l I & O 11/11/20 07:00 Intake Total 940 ml Balance 940 ml Capillary Refill : Less Than 3 Seconds General Appearance: No Apparent Distress HEENT: PERRL/EOMI Neck: Full Range of Motion Respiratory: Chest Non Tender, Decreased Breath Sounds Cardiovascular: Regular Rate, Rhythm Gastrointestinal: normal bowel sounds, non tender, soft Extremity: Normal Capillary Refill Neurologic/Psychiatric: Alert, Oriented x3 Skin: Normal Color Lymphatic: No Adenopathy Results Lab Laboratory Tests 11/11/20 06:14: White Blood Count 8.5, Red Blood Count 3.71L, Hemoglobin 11.4L, Hematocrit 35L, Mean Corpuscular Volume 95, Mean Corpuscular Hemoglobin 31, Mean Corpuscular Hemoglobin Concent 32, Red Cell Distribution Width 13.7, Platelet Count 256, Mean Platelet Volume 11.3, Immature Granulocyte % (Auto) 0, Neutrophils (%) (Auto) 65, Lymphocytes (%) (Auto) 27, Monocytes (%) (Auto) 6, Eosinophils (%) (Auto) 1, Basophils (%) (Auto) 0, Neutrophils # (Auto) 5.6, Lymphocytes # (Auto) 2.3, Monocytes # (Auto) 0.5, Eosinophils # (Auto) 0.1, Basophils # (Auto) 0.0, I mmature Granulocyte # (Auto) 0.0, Sodium Level 141, Potassium Level 3.7, Chloride Level 104, Carbon Dioxide Level 26, Anion Gap 11, Blood Urea Nitrogen 16, Creatinine 0.88, Estimat Glomerular Filtration Rate > 60, BUN/Creatinine Ratio 18, Glucose Level 112H, Calcium Level 8.4L, Corrected Calcium 8.5, Total Bilirubin 0.5, Aspartate Amino Transf (AST/SGOT) 18, Alanine Aminotransferase (ALT/SGPT) 14, Alkaline Phosphatase 38L, Total Protein 6.9, Albumin 3.9 Microbiology 11/09/20 MRSA Screen - Final, Complete MRSA not isolated Assessment/Plan Assessment/Plan Assess & Plan/Chief Complaint s/p right shoulder arthroplasty with iatrogenic right ptx. continue ambulation. pain control. repeat cxr in MARLEE Valdez MD Nov 11, 2020 10:13
[2020-11-11] MEDS ORDERED: ALPRAZolam 0.25 MG (XANAX) TAB PO PRN (21:15)
[2020-11-11] MEDS ORDERED: ACETAMINOPHEN 500 MG TAB (TYLENOL) PO PRN (21:15)
[2020-11-11] MEDS ORDERED: CALCIUM CARBONATE 500 MG (TUMS) TAB.CHEW PO PRN (21:15)
[2020-11-11] MEDS ORDERED: diphenhydrAMINE 25 MG TAB (BENADRYL) PO PRN (21:15)
[2020-11-11] MEDS ORDERED: MELATONIN 3 MG TABLET PO PRN (21:15)
[2020-11-11] MEDS: LACTULOSE SYRUP 10GM/15ML (ENULOSE) 30ML UDC PO SCH (21:45)
[2020-11-11] MEDS: polyethylene glycoL POWDER 17 GM (MIRALAX) PACK PO SCH (21:45)
[2020-11-11] MEDS: SENNA W/DOCUSATE (SENOKOT S) TABLET PO SCH (21:45)
[2020-11-11] MEDS: DOCUSATE SODIUM 100 MG (COLACE) CAP PO SCH (21:45)
[2020-11-12] MEDS: HYDROcodone/APAP 7.5 MG/325 MG (LORTAB, LORCET PLUS) TABLET PO PRN ×3 (01:50→12:14)
[2020-11-12] MEDS: RT-ALBUTEROL SULF 2.5 MG/3 ML PRE-MIX VIAL INH SCH ×3 (03:40→14:44)
[2020-11-12] MEDS: fentaNYL INJ 100 MCG/2 ML AMP IVP PRN ×3 (03:50→14:27)
--- NOTE | 2020-11-12 08:24 | Diagnostic Imaging Report ---
Indication: Right-sided pneumothorax. Time of exam: 6:35 AM Correlation is made with prior chest from one day earlier. Heart size is normal. There is a small right apical pneumothorax. There is subcutaneous emphysema along the right chest wall and the right neck however this does appear to be slightly improved. Pneumomediastinum has improved. There is some minimal subsegmental atelectasis of the right base. Otherwise lungs are clear. No effusion. Impression: Small right apical pneumothorax. The pneumomediastinum and subcutaneous emphysema has improved since yesterday. Dictated by: Dictated on workstation # [id number]
[2020-11-12] MEDS: ASPIRIN E.C. 81 MG (ECOTRIN) TAB PO SCH (08:37)
[2020-11-12] MEDS: DOCUSATE SODIUM 100 MG (COLACE) CAP PO SCH (08:37)
[2020-11-12] MEDS: SENNA W/DOCUSATE (SENOKOT S) TABLET PO SCH (08:37)
[2020-11-12] MEDS: [UNRECOGNIZED DRUG - REMARK] PO SCH (08:38)
[2020-11-12] MEDS: LACTULOSE SYRUP 10GM/15ML (ENULOSE) 30ML UDC PO SCH (08:39)
[2020-11-12] MEDS: polyethylene glycoL POWDER 17 GM (MIRALAX) PACK PO SCH (08:40)
[2020-11-12] MEDS ORDERED: ATOR40TA70 PO (09:00)
[2020-11-12] MEDS ORDERED: LISI1TAB46 PO (09:00)
[2020-11-12] MEDS ORDERED: TRAM50TA3 PO (09:00)
[2020-11-12] MEDS ORDERED: SILD100T67 PO (09:00)
[2020-11-12] MEDS ORDERED: ASPI-1238 PO (09:00)
[2020-11-12 11:45] VITALS: BP 126/84
[2020-11-12 11:50] VITALS: BP 126/83
[2020-11-12] MEDS ORDERED: RT-ALBUTEROL SULF 2.5 MG/3 ML PRE-MIX VIAL INH PRN (13:00)
--- NOTE | 2020-11-12 13:39 | Discharge Summary ---
Discharge Summary Hospital Course Hospital Course Date of Admission: Nov 09, 2020 at 15:22 Admission Diagnosis : Right-sided pneumothorax subcutaneous emphysema Right shoulder arthroscopy by Dr. Carrera at [facility] Former smoker HTN HLD Family Physician/Provider: [place] Date of Discharge: 11/12/20 Discharge Diagnosis: Right-sided pneumothorax s/p pleural vent subcutaneous emphysema Right shoulder arthroscopy by Dr. Carrera at [facility] Former smoker HTN HLD Hospital Course: Pt had right shoulder surgery on 11/09 am, he had shortness of breath after d/c and came to the ER and was found to have right apical pneumothorax, a thoravent chest tube was placed in ER, he had steady improvement, and the tube was removed on 11/10 and he had slow improvement of chest x-ray findings and required no supplemental oxygen. He was followed by general surgery who okay'd discharge on 11/12 with follow up with Ortho. Labs and Pending Lab Test: Microbiology 11/09/20 MRSA Screen - Final, Complete MRSA not isolated Home Meds Active Reported Lisinopril-Hctz 20-12.5 mg Tab (Lisinopril/Hydrochlorothiazide) 1 Each Tablet 1 Each PO DAILY Atorvastatin Calcium 40 Mg Tablet 40 Mg PO HS Tramadol HCl 50 Mg Tablet 50-100 Mg PO Q8H PRN TAKES 1-2 (50MG) TABLETS Sildenafil Citrate 100 Mg Tablet 50-100 Mg PO PRN PRN TAKES -1 (100MG) TABLETS Aspirin EC (Aspirin) 81 Mg Tablet. 81 Mg PO DAILY Assessment/Pt DC Instructions Follow up with IRIS Dale at [facility] on 11/15 at [address] am[address] Follow up with Dr. Carrera at [facility] as recommended. Discharge Diet: No Restrictions Activity as Tolerated: No (per Ortho post-op recommendations) Discharge Physical Examination Allergies: Coded Allergies: No Known Drug Allergies (Unverified , 07/18/14) General Appearance: No Apparent Distress, WD/WN Respiratory: No Accessory Muscle Use, Decreased Breath Sounds (right) Cardiovascular: Regular Rate, Rhythm, No Murmur Extremity: Other (right arm in sling with ice on shoulder) Skin: Normal Color, Warm/Dry Neurologic/Psychiatric: Alert, Normal Mood/Affect Copy Copies To 1: IRIS Dale BETHANY N MD Nov 12, 2020 13:36
[2020-11-12] MEDS ORDERED: HYDR-3817 PO (15:47)
--- NOTE | 2020-11-12 15:59 | Progress Note ---
Subjective Date Seen by a Provider: Nov 12, 2020 Time Seen by a Provider: 15:00 Subjective/Events-last exam doing well. pain controlled. tolerating diet. no fever/chills. Objective Exam Vital Signs Date Time Temp Pulse Resp B/P (MAP) Pulse Ox O2 Delivery O2 Flow Rate FiO2 11/12/20 14:44 92 Room Air 11/12/20 11:50 36.7 88 20 126/83 (97) 94 Room Air 11/12/20 11:45 36.4 98 93 21 11/12/20 09:49 Room Air 11/12/20 09:12 93 Room Air 11/12/20 08:16 36.4 105 22 126/84 (98) 96 Room Air 11/12/20 03:51 36.0 99 20 126/81 (96) 94 Room Air 11/12/20 03:40 95 Room Air 11/12/20 00:00 36.1 85 20 114/74 (87) 94 Room Air 11/11/20 20:51 95 Room Air 11/11/20 20:45 95 Room Air 11/11/20 20:35 36.2 84 20 137/84 (101) 95 Room Air 11/11/20 19:00 102 I & O 11/12/20 07:00 Intake Total 1620 ml Balance 1620 ml Capillary Refill : Less Than 3 Seconds General Appearance: No Apparent Distress HEENT: PERRL/EOMI Neck: Full Range of Motion Respiratory: Chest Non Tender, Lungs Clear Cardiovascular: Regular Rate, Rhythm Gastrointestinal: normal bowel sounds, non tender, soft Extremity: Normal Capillary Refill Neurologic/Psychiatric: Alert, Oriented x3 Skin: Normal Color Lymphatic: No Adenopathy Results Lab Microbiology 11/09/20 MRSA Screen - Final, Complete MRSA not isolated Assessment/Plan Assessment/Plan Assess & Plan/Chief Complaint s/p right shoulder arthroplasty with iatrogenic right ptx. continue ambulation. pain control. home soon. no work for 2 weeks then no heavy lifting/exertion 6 weeks total. MARLEE LANGSTON MD Nov 12, 2020 15:59
[2020-11-12 16:00] VITALS: BP 126/83
== END 2020-11-12 16:00 | disposition home or self-care (01) | DRG 201 ==
LOC: EDUNIT# 12:51 → ER 12:54 → ICU 15:22 → 4TH 11-10 23:14
PROVIDERS: ADMIT Internal Medicine; ATTEND Family Medicine
PROC: 0W9930Z Drainage of Right Pleural Cavity with Drainage Device, Percutaneous Approach (ICD-10-PCS; principal; 2020-11-09)
DX: J95.811 Postprocedural pneumothorax (principal); T81.82XA Emphysema (subcutaneous) resulting from a procedure, initial encounter; K59.00 Constipation, unspecified; I10 Essential (primary) hypertension; Z87.891 Personal history of nicotine dependence; E78.5 Hyperlipidemia, unspecified; Z79.82 Long term (current) use of aspirin
CPT/HCPCS: 32551; 36415; 71045; 71250; 80048; 80053; 83880; 85007; 85025; 85027; 87081; 94640; 94664; 94760; 99291

== ENCOUNTER → 2020-12-26 | Outpatient (CLI) | payer OTHER ==
[~2020-12-26] MED LIST changes: +ASPI-1238 PO; +ATOR40TA70 PO; +HYDR-3817 PO; +LISI1TAB46 PO; +SILD100T67 PO; +TRAM50TA3 PO
--- NOTE | 2020-12-26 16:09 | Diagnostic Imaging Report ---
EXAMINATION: Chest 2 views. HISTORY: Pneumothorax. COMPARISON: 11/12/2020 FINDINGS: The lungs are clear without edema or pneumonia. No pleural effusion or pneumothorax. Previously seen pneumothorax has resolved. Heart size is normal. IMPRESSION: 1. Resolution of previously seen pneumothorax. Dictated by: Dictated on workstation # [id number]
== END ==
LOC: RAD 15:20
PROVIDERS: ATTEND Nurse Practitioner Family
DX: R06.02 Shortness of breath (principal); Z87.09 Personal history of other diseases of the respiratory system
CPT/HCPCS: 71046

== ENCOUNTER → 2021-03-08 | Outpatient (CLI) | payer OTHER | LOC: LABNPT 06:37 | PROVIDERS: ATTEND Orthopaedic Surgery | DX: Z01.812 Encounter for preprocedural laboratory examination (principal); Z20.822 Contact with and (suspected) exposure to COVID-19 | CPT/HCPCS: 87635 ==

== ENCOUNTER → 2021-06-20 | Outpatient (CLI) | payer OTHER ==
[~2021-06-20] VITALS: Ht 170.2 cm; Wt 93.3 kg
[~2021-06-20] MED LIST changes: +MELO15TA39 PO
== END ==
LOC: PREOP 05:41
PROVIDERS: ATTEND Surgery
DX: Z01.812 Encounter for preprocedural laboratory examination (principal); Z20.822 Contact with and (suspected) exposure to COVID-19
CPT/HCPCS: 87635

== ENCOUNTER 2021-06-21 11:35 | Day surgery (SDC) | payer OTHER ==
--- NOTE | 2021-06-20 07:18 | HISTORY AND PHYSICAL ---
DATE OF SERVICE: DATE OF ADMISSION: 06/21/2021 ATTENDING COMPUTER CONSULTANT: [facility]. HISTORY OF PRESENT ILLNESS: The patient is a 56-year-old male known to us. He underwent a right open shoulder orthopedic procedure at [facility] and was discharged home and once he got home, he developed shortness of breath and presented to the Emergency Department where a chest x-ray was performed, which did show subcutaneous air as well as pneumothorax. A Thora-Vent was placed and he was then monitored. While in the hospital, he continued to do well with continued expansion of the lung and there did not appear to be any leak. Eventually, the Thora-Vent was removed and the followup chest x-ray did show full expansion of the lung. Since that time, he has had a multitude of issues. He states that after that surgery on 11/09/2020, he had continued pain as well as minimal range of motion and on 03/11/2021, underwent open revision of the tear; however, he still continues to have issues with range of motion and is again scheduled for another procedure. During this timeframe, he has developed shortness of breath, especially while lying down. He also reports shortness of breath with exertional activity. He states that he sleeps in a recliner. If he sleeps flat, he has worsening shortness of breath. He also does have developed cough, phlegmonous drainage as well as sometimes blood. He also reports frequent regurgitation; however, he does not report any previous history of gastroesophageal reflux disease nor peptic ulcer disease. PAST MEDICAL HISTORY: Hypertension, cardiac arrhythmia and degenerative joint disease. PAST SURGICAL HISTORY: Right shoulder open reduction and internal fixation 11/09/2020, 03/11/2021. ALLERGIES: NO KNOWN DRUG ALLERGIES. MEDICATIONS: Lisinopril/hydrochlorothiazide daily. Aspirin 81 mg daily as well as tramadol p.r.n. SOCIAL HISTORY: Previous smoker, 30 pack years, quit one year ago. He does drink one to two beers daily. FAMILY HISTORY: Noncontributory. VITAL SIGNS: Blood pressure 155/80, current weight 205.7 pounds at 5 feet 7 inches. REVIEW OF SYSTEMS: A well-nourished male currently in no acute distress. He does report exertional shortness of breath as well as lying down. He also reports frequent episodes of pressure sensation after eating a meal in what sounds like the mediastinum and this exacerbates the shortness of breath. He also does have regurgitation and coughing usually while lying supine. No audrey episodes of nausea, vomiting, no diarrhea or constipation. No recent inadvertent weight loss. No fever or chills. All other review of systems negative. PHYSICAL EXAMINATION: CHEST: Clear. Good breath sounds bilaterally. HEART: Regular, no murmurs. EXTREMITIES: No lower extremity edema, negative Homans sign. HEENT: No scleral icterus. NECK: No cervical lymphadenopathy. ABDOMEN: Soft, nontender, nondistended. SKIN: Warm, dry. ASSESSMENT AND PLAN: A 56-year-old male with shortness of breath while lying supine as well as with exertion. We feel that this may be secondary to a pulmonology issue and we will get a CT scan of the chest and abdomen and also refer him to pulmonology for pulmonary function testing as well as possible VQ scanning. We feel that he has also developed significant reflux due to his aspirin and other medication use as well as the stress from his previous surgeries. We will schedule him for an EGD, biopsy as well as possible balloon dilatation. Job ID: [id number] DocumentID: [id number] Dictated Date: 06/18/2021 16:27:16 District Sales Representative Date: 06/18/2021 16:44:03 Dictated By: MARLEE LANGSTON MD
[~2021-06-21] VITALS: Ht 170.2 cm; Wt 93.3 kg
[2021-06-21] VITALS (9 sets, daily range): BP systolic 66–117; BP diastolic 37–73
[2021-06-21] MEDS ORDERED: LACTATED RINGERS 1,000 ML IV STA (11:38)
[2021-06-21] MEDS ORDERED: LACTATED RINGERS 1,000 ML IV ONE (11:39)
--- NOTE | 2021-06-21 11:40 | Progress Note-Pre Operative ---
Pre-Operative Progress Note H&P Reviewed The H&P was reviewed, patient examined and no changes noted. Date Seen by Provider: Jun 21, 2021 Time Seen by Provider: 11:30 Date H&P Reviewed: Jun 21, 2021 Time H&P Reviewed: :30 Pre-Operative Diagnosis: dysphagia, regurgitation MARLEE LANGSTON MD Jun 21, 2021 11:40
--- NOTE | 2021-06-21 11:41 | Discharge Inst-Surgical ---
D/C Lap Instructions-KIAN Follow Up Activity as tolerated High Fiber Diet 25g or more per day Avoid Alcohol, Caffeine, Spicy [place] and Acid foods. Drink 64 fluid oz or more of fluids per day. Symptoms to Report: Fever over 101 degree F, Nausea/Vomiting If any problems/questions: Contact your physician or go to Emergency Room MARLEE LANGSTON MD Jun 21, 2021 11:41
[2021-06-21] MEDS ORDERED: ONDANSETRON 4 MG (ZOFRAN) ORAL DISSOLVE TAB PO PRN (11:45)
[2021-06-21] MEDS ORDERED: HURRICAINE EXT TUBE (BENZOCAINE) XX PRN (11:45)
[2021-06-21] MEDS ORDERED: LIDOCAINE JELLY 2% 6 ML SYRINGE MM PRN (11:45)
[2021-06-21] MEDS ORDERED: ONDANSETRON 4 MG/2 ML (SDV) Z0FRAN IVP PRN (11:45)
[2021-06-21] MEDS ORDERED: MIDAZOLAM 2 MG/2 ML (VERSED) VIAL ONE (12:08)
[2021-06-21] MEDS ORDERED: PROPOFOL INJECTION 50 ML IV ONE (12:08)
--- NOTE | 2021-06-21 12:48 | Progress Note-Post Operative ---
Post-Operative Progess Note Surgeon (s)/Head Greenskeeper (s) Surgeon MARLEE LANGSTON MD Head Greenskeeper: none Pre-Operative Diagnosis dysphagia, regurgitation Post-Operative Diagnosis reflux esophatitis(LA C), mild distal esoph stricture, small-moderate HH(2.5cm), mod-severe gastritis. Procedure & Operative Findings Date of Procedure 06/21/21 Procedure Performed/Findings EGD with bx and balloon dilatation. Anesthesia Type mac Estimated Blood Loss Estimated blood loss (mL): minimal Specimens/Packing Specimens Removed ge jxn, antrum MARLEE LANGSTON MD Jun 21, 2021 12:48
--- NOTE | 2021-06-21 13:21 | Anesthesia-General Post-Op ---
MAC Patient Condition Mental Status/LOC: Same as Preop Cardiovascular: Satisfactory Nausea/Vomiting: Absent Respiratory: Satisfactory Pain: Controlled Complications: Absent Post Op Complications Complications None Follow Up Care/Instructions Patient Instructions None needed. Anesthesiology Discharge Order Discharge Order Patient is doing well, no complaints, stable vital signs, no apparent adverse anesthesia problems. No complications reported per nursing. PAVAN ZARATE CRNA Jun 21, 2021 13:21
--- NOTE | 2021-06-21 19:55 | OPERATIVE REPORT ---
DATE OF SERVICE: 06/21/2021 ATTENDING PRIMARY SUPERVISOR RESEARCH KENNEL: [facility]. PREOPERATIVE DIAGNOSES: Dysphagia, regurgitation, and post prandial shortness of breath. POSTOPERATIVE DIAGNOSES: Reflux esophagitis, [place] grade C, mild distal esophageal stricture, small to moderate size hiatal hernia 2 to 2.5 cm in size, moderate to severe gastritis. No distal obstructions. PROCEDURES PERFORMED: EGD with biopsy and balloon dilatation. SURGEON: Sohail Albrecht MD. ANESTHESIA: Monitored anesthesia care. ESTIMATED BLOOD LOSS: Minimal. FINDINGS: Reflux esophagitis, [place] grade C, mild distal esophageal stricture, small to moderate size hiatal hernia 2 to 2.5 cm in size, moderate to severe gastritis. No distal obstructions. DISPOSITION: The patient tolerated the procedure well. INDICATIONS FOR PROCEDURE: The patient is a 56-year-old male known to us. He underwent right open shoulder orthopedic procedure at [facility] and was discharged home and once he got home, he developed significant shortness of breath and presented to the Emergency Department, where a chest x-ray was performed, which did show subcutaneous air as well as a pneumothorax. A thorovent was placed and he was monitored and he did well and had the tube removed and he had a fully inflated lung on follow-up chest x-rays. Since that time, he has had a multitude of issues. Since his initial surgery on 11/09/2020, he reports that he has had continued pain as well as the minimal range of motion and on 03/11/2021, underwent an open revision of the right shoulder and still continues to have issues with range of motion and pain. During this timeframe, he has developed shortness of breath, especially while lying supine as well as exertional activities. He states that he sleeps in a recliner. Upon further questioning, he also reports that he has postprandial shortness of breath as well and has developed a persistent cough as well as phlegmonous drainage as well as sometimes blood. He also does report frequent regurgitation, but does not report any previous history of gastroesophageal reflux disease and no peptic ulcer disease. DESCRIPTION OF PROCEDURE: The patient was brought to the endoscopy suite and laid in the left lateral decubitus position. After adequate IV pain and sedative medications and monitored anesthesia care, the mouthpiece was applied. The endoscope was placed in the mouth, visualizing the pharynx and hypopharyngeal region. Vocal cords, epiglottis and vallecula were identified and appeared to be normal. The endoscope was gently intubated into the esophageal opening and esophagus insufflated. The endoscope was then advanced to the first, second and third portion of the esophagus. At the level of the GE junction, a reflux esophagitis, [place] grade C identified with a mild distal esophageal stricture. Multiple biopsies were taken with the forceps with visualization of good hemostasis. The endoscope was then advanced in the stomach and the endoscope retroflexed, visualizing a small to moderate size hiatal hernia approximately 2 to 2.5 cm in size. There was a [id number] gastritis; however, no formal ulcerations. A biopsy was taken of the antrum to rule out H. pylori with visualization of good hemostasis. The endoscope was then advanced to the pylorus and the first and second portion of the duodenum, which appeared normal with no distal obstructions or ulcerations. The balloon was then placed in the stomach and pulled back to the area of the stricture. We then proceeded in a gradual stepwise fashion from 2, 4, then eventually 5.5 atmospheres of pressure or approximately 19.5 mm in luminal diameter with moderate resistance and left this in place for approximately 60 seconds. The balloon was then desufflated and removed with visualization of no mucosal tears as well as no bleeding. The endoscope was then slowly withdrawn while taking a second look and suctioning of residual air with no additional findings. The patient tolerated the procedure well. We will recommend the necessary lifestyle and dietary accommodation including small and more frequent meals, avoidance of eating at night as well as head elevation while lying supine. He also needs to avoid caffeinated beverages, spicy, greasy and acidic foods as well as alcoholic beverages. We also have already started him on Protonix 40 mg daily and we will have him follow up for further evaluation as well as possible repeat dilatation to the goal of 20 mm. Job ID: [id number] DocumentID: [id number] Dictated Date: 06/21/2021 12:44:20 Public Relations Sales Marketing Date: 06/21/2021 19:55:00 Dictated By: MD PAULINO SANCHEZ
== END 2021-06-21 13:45 | disposition home or self-care (01) ==
LOC: ENDO 11:35
PROVIDERS: ATTEND Surgery
DX: K21.00 Gastro-esophageal reflux disease with esophagitis, without bleeding (principal); K29.50 Unspecified chronic gastritis without bleeding; K22.2 Esophageal obstruction; K44.9 Diaphragmatic hernia without obstruction or gangrene; I10 Essential (primary) hypertension; Z79.82 Long term (current) use of aspirin; Z87.891 Personal history of nicotine dependence; Z79.899 Other long term (current) drug therapy
CPT/HCPCS: 88305

== ENCOUNTER → 2021-07-10 | Outpatient (CLI) | payer OTHER ==
[~2021-07-10] MED LIST changes: +CATHETER FLUSH 10 ML SYR IV PRN; +HOLD METFORMIN - RECEIVED CONTRAST 20 ML VIAL IV SCH; +IOHEXOL 350 MG/ML 100 ML (OMNIPAQUE 350) VIAL IV ONE; +NS 100 ML (IVPB) BAG IV ONE
[2021-07-10 10:31] LABS: CREATININE SERUM 0.95 MG/DL (0.60-1.30)
--- NOTE | 2021-07-10 12:42 | Diagnostic Imaging Report ---
PROCEDURE: CT chest, abdomen, and pelvis with contrast. TECHNIQUE: Multiple contiguous axial images were obtained through the chest, abdomen, and pelvis after the administration of intravenous contrast. Auto Exposure Controls were utilized during the CT exam to meet ALARA standards for radiation dose reduction. INDICATION: History of pneumothorax and surgery. Compared with a chest CT 11/09/2020 Since the prior there has been complete resolution of a previous pneumothorax, subcutaneous gas and pneumomediastinum. At follow-up no pathological air collection is found. The lungs are clear and well expanded aside from minimal dependent bibasilar partial atelectasis. No features felt suggestive of pneumonia or pulmonary edema. No lung mass. No pathological-appearing thoracic lymph nodes. The aorta is nonaneurysmal. No effusion. No acute or suspect soft tissue or osseous chest wall lesion. Abdomen pelvis: Comparison limited to a pelvic CT dated 08/22/2014. Liver, gallbladder and bile ducts unremarkable. Spleen, adrenals and pancreas unremarkable. The kidneys are unobstructed and nonacute. There is an air-containing appendix normal in appearance. There is no diverticulitis. There is no small or large bowel obstruction. The urinary bladder unremarkable. The atherosclerotic aorta patent and nonaneurysmal and nonacute. There is no ascites, abscess, hematoma or acute fluid collection. Some mildly prominent fat-containing inguinal lymph nodes bilaterally slightly increased but overall relatively similar to the remote comparison and are likely reflective of some incidental mild chronic reactive changes. The osseous structures of the abdomen and pelvis stable and chronic. IMPRESSION: Chest: A complete resolution of prior pneumothorax, pneumomediastinum and subcutaneous gas. No acute or suspicious finding in the chest. Abdomen pelvis: No acute or suspicious abnormality. Dictated by: Dictated on workstation # [id number]
== END ==
LOC: RAD 10:45
PROVIDERS: ATTEND Surgery
DX: R06.02 Shortness of breath (principal)
CPT/HCPCS: 36415; 71260; 74177; 82565; 84520